=== PATIENT | male | born 1950 | race Caucasian/White ===

== ENCOUNTER 2021-07-30 10:10 | Inpatient (IN) | payer MEDICARE, OTHER ==
[~2021-07-30] VITALS: Ht 177.8 cm; Wt 141.5 kg
[2021-07-30 11:21] LABS: Basophils # (auto) 0.1 10 ^3/uL (0-0.2); Eosinophils # (auto) 0.2 10 ^3/uL (0-0.8); Hemoglobin 17.2 g/dL (13.5-17.5); Monocytes # (auto) 0.9 10 ^3/uL (0-1.3); Nucleated Red Blood Cells % 0.2 %; White Blood Cell 6.6 10^3/uL (4.4-10.8)
[2021-07-30 11:25] LABS: Basophils % (auto) 0.8 % (0.0-2.0); Eosinophils % (auto) 3.4 % (0.0-7.0); Hematocrit 54.6 % (41.0-53.0); Lymphocytes # (auto) 1.2 10 ^3/uL (0.4-5.4); Lymphocytes % (auto) 17.8 % (10.0-50.0); Mean Corpuscular Hemoglobin 29.7 pg (28.0-32.0); Mean Corpuscular Hgb Conc. 31.5 g/dL (32.0-36.0); Mean Corpuscular Volume 94.1 fL (80.0-100.0); Monocytes % (auto) 14.2 % (0.0-12.0); Neutrophils # (auto) 4.2 10 ^3/uL (1.6-8.6); Neutrophils % (auto) 63.8 % (37.0-80.0); Red Cell Distribution Width 18.6 % (11.8-14.3)
[2021-07-30 11:35] LABS: Chloride 106 mmol/L (98-107); Potassium 4.5 mmol/L (3.5-5.1); Sodium 138 mmol/L (136-145)
[2021-07-30 11:44] LABS: Anion Gap 3 (5-15); Blood Urea Nitrogen 24 mg/dL (7-18); Carbon Dioxide 29 mmol/L (21-32); Glucose 98 mg/dL (74-106)
[2021-07-30 11:45] LABS: Alanine Aminotransferase 24 U/L (16-61); Albumin 2.8 g/dL (3.4-5.0); Alkaline Phosphatase 77 U/L (45-117); Aspartate Aminotransferase 23 U/L (15-37); BUN/Creatinine Ratio 21.1; Bilirubin, Total 0.6 mg/dL (0.2-1.0); Calcium 8.6 mg/dL (8.5-10.1); GFR African American 82 mL/min; GFR Non-African American 67 mL/min; Total Protein 7.1 g/dL (6.4-8.2)
[2021-07-30] MEDS ORDERED: FUROSEMIDE 40 MG/4 ML VIAL IV ONE (11:45)
[2021-07-30] MEDS ORDERED: MORPHINE SULFATE INJECTION 2 MG/ML SYRG IV PRN ×2 (13:30)
[2021-07-30] MEDS ORDERED: ONDANSETRON HCL 4 MG/2 ML VIAL IV PRN (13:30)
[2021-07-30] MEDS ORDERED: hydrALAZINE HCL 20 MG/ML VL IV PRN (13:30)
[2021-07-30] MEDS ORDERED: HYDROcodone-ACET 5/325MG TAB PO PRN (13:30)
[2021-07-30] MEDS ORDERED: ALBUTEROL SULF 2.5 MG/0.5ML(0.5%) NEB SOLN NEB PRN (13:30)
[2021-07-30] MEDS ORDERED: LORazepam 0.5 MG TAB PO PRN (13:30)
[2021-07-30] MEDS ORDERED: IPRATROPIUM BROM 0.5 MG/2.5ML INH SOL NEB PRN (13:30)
[2021-07-30] MEDS ORDERED: NITROGLYCERIN 0.4 MG SL TAB SL PRN (13:30)
[2021-07-30] MEDS ORDERED: ACETAMINOPHEN 500 MG TAB PO PRN (13:30)
[2021-07-30] MEDS: CLINDAMYCIN 300MG IV 50 ML IV SCH ×2 (14:39→22:00)
[2021-07-30 15:50] VITALS: BP 131/73
[2021-07-30] MEDS: cefTRIAXone 1GM/50ML D5W 50 ML IV SCH (16:05)
[2021-07-30] MEDS ORDERED: LORazepam 2MG/ML-1ML VIAL ONE (16:57)
[2021-07-30] MEDS: LORazepam 2MG/ML-1ML VIAL IV PRN ×2 (17:01→22:38)
[2021-07-30] MEDS: FUROSEMIDE 20 MG/2 ML VIAL IV SCH (18:00)
[2021-07-30] MEDS: IPRATROPIUM BROM 0.5 MG/2.5ML INH SOL NEB SCH (18:42)
[2021-07-30] MEDS: ALBUTEROL SULF 2.5 MG/0.5ML(0.5%) NEB SOLN NEB SCH (18:42)
[2021-07-30] MEDS: ATORVASTATIN 20 MG TAB PO SCH (22:00)
[2021-07-30] MEDS: METOPROLOL TARTRATE 25 MG TAB PO SCH (22:00)
[2021-07-31] VITALS (8 sets, daily range): BP systolic 64–137; BP diastolic 14–57
[2021-07-31 04:12] LABS: Amphetamine Screen, Urine NEGATIVE (NEGATIVE); Barbiturate Scree,Urine NEGATIVE (NEGATIVE); Benzodiazephine Screen, Urine NEGATIVE (NEGATIVE); Cannabinoid Screen, Urine NEGATIVE (NEGATIVE); Cocaine Screen, Urine NEGATIVE (NEGATIVE); Opiate Scree,Urine NEGATIVE (NEGATIVE); Phencyclidine Screen, Urine NEGATIVE (NEGATIVE)
[2021-07-31 04:28] LABS: Urine Bacteria NONE SEEN /hpf (None Seen); Urine Blood 1+ /uL (Negative); Urine Hyaline Cast FEW /lpf (0 - 2); Urine Mucus FEW (None Seen); Urine Specific Gravity 1.009 (1.001-1.035); Urine WBC 2 /hpf (0 - 3)
[2021-07-31 04:29] LABS: Alcohol, Urine < 3.0 mg/dL (0-10)
[2021-07-31] MEDS: CLINDAMYCIN 300MG IV 50 ML IV SCH ×3 (05:05→22:27)
[2021-07-31] MEDS: FUROSEMIDE 20 MG/2 ML VIAL IV SCH ×2 (05:06→18:23)
[2021-07-31] MEDS: IPRATROPIUM BROM 0.5 MG/2.5ML INH SOL NEB SCH ×3 (05:56→19:44)
[2021-07-31] MEDS: ALBUTEROL SULF 2.5 MG/0.5ML(0.5%) NEB SOLN NEB SCH ×3 (05:56→19:44)
[2021-07-31 06:12] LABS: Basophils # (auto) 0.1 10 ^3/uL (0-0.2); Eosinophils # (auto) 0.2 10 ^3/uL (0-0.8); Monocytes # (auto) 1.2 10 ^3/uL (0-1.3)
[2021-07-31 06:15] LABS: Basophils % (auto) 0.7 % (0.0-2.0); Eosinophils % (auto) 1.4 % (0.0-7.0); Hematocrit 61.2 % (41.0-53.0); Hemoglobin 18.9 g/dL (13.5-17.5); Lymphocytes % (auto) 8.2 % (10.0-50.0); Mean Corpuscular Hemoglobin 30.7 pg (28.0-32.0); Mean Corpuscular Hgb Conc. 30.9 g/dL (32.0-36.0); Mean Corpuscular Volume 99.3 fL (80.0-100.0); Monocytes % (auto) 10.6 % (0.0-12.0); Neutrophils # (auto) 9.2 10 ^3/uL (1.6-8.6); Neutrophils % (auto) 79.1 % (37.0-80.0); Nucleated Red Blood Cells % 0.7 %; Red Blood Cells 6.16 10^6/uL (4.5-5.90); Red Cell Distribution Width 19.5 % (11.8-14.3); White Blood Cell 11.7 10^3/uL (4.4-10.8)
[2021-07-31] MEDS ORDERED: ETOMIDATE (2MG/ML) 20ML VIAL IV ONE ×2 (06:22→06:45)
[2021-07-31] MEDS ORDERED: SUCCINYLCHOLINE CHLORIDE 20 MG/ML 10ML VIAL IV ONE ×2 (06:22→06:45)
[2021-07-31] MEDS ORDERED: FUROSEMIDE 40 MG/4 ML VIAL IV ONE (06:30)
[2021-07-31 06:31] LABS: Anion Gap 6 (5-15); Carbon Dioxide 29 mmol/L (21-32); Chloride 102 mmol/L (98-107); Glucose 174 mg/dL (74-106); Potassium 4.8 mmol/L (3.5-5.1); Sodium 137 mmol/L (136-145)
[2021-07-31 06:33] LABS: BUN/Creatinine Ratio 16.7; Blood Urea Nitrogen 25 mg/dL (7-18); GFR African American 60 mL/min; GFR Non-African American 49 mL/min
[2021-07-31 06:35] LABS: INR 1.37 (0.9-1.15); Partial Thromboplastin Time 37.9 sec (23.6-33.0)
[2021-07-31] MEDS ORDERED: MIDAZOLAM DRIP 50 mg/50mL 50 ML IV ONE (06:36)
[2021-07-31] MEDS ORDERED: fentaNYL Drip 2500mCg/250mlNS 250 ML IV ONE (06:49)
[2021-07-31] MEDS ORDERED: NOREPINEPHRINE 8 MG/250ML KIT 250 ML IV ONE (07:29)
[2021-07-31] MEDS: MIDAZOLAM DRIP 50 mg/50mL 50 ML IV SCH ×2 (07:30→20:51)
[2021-07-31] MEDS: fentaNYL Drip 2500mCg/250mlNS 250 ML IV SCH ×2 (07:30→20:51)
[2021-07-31] MEDS: NOREPINEPHRINE 8 MG/250ML KIT 250 ML IV SCH ×2 (07:40→23:00)
[2021-07-31] MEDS: METOPROLOL TARTRATE 25 MG TAB PO SCH ×2 (10:00→22:00)
[2021-07-31] MEDS: NICOTINE 21MG/24 HR TOPICAL PATCH TD SCH (10:00)
[2021-07-31] MEDS ORDERED: ENOXAPARIN SOD 40 MG/0.4 ML SYRINGE SC SCH (10:00)
[2021-07-31] MEDS: LISINOPRIL 10 MG TAB PO SCH (10:00)
[2021-07-31] MEDS: ASPirin-EC 81 mg tab PO SCH (10:00)
[2021-07-31] MEDS ORDERED: PANTOPRAZOLE 40 MG TAB PO SCH (10:00)
[2021-07-31] MEDS: PANTOPRAZOLE 40 MG/10 ML VIAL INJ IV SCH (11:40)
[2021-07-31] MEDS: cefTRIAXone 1GM/50ML D5W 50 ML IV SCH (11:40)
[2021-07-31] MEDS: ENOXAPARIN SOD 120 MG/0.8 ML SYRINGE SC SCH ×2 (14:00→22:28)
[2021-07-31] MEDS: ACETAMINOPHEN 650 mg PER 20.3 mL UD GT PRN (20:50)
[2021-07-31] MEDS: ATORVASTATIN 20 MG TAB PO SCH (22:27)
[2021-07-31] MEDS ORDERED: PHENYLEPHRINE IV 250 ML IV ONE (23:06)
[2021-07-31] MEDS: PHENYLEPHRINE IV 250 ML IV SCH (23:39)
[2021-08-01] VITALS (8 sets, daily range): BP systolic 86–130; BP diastolic 40–74
[2021-08-01] MEDS: MIDAZOLAM DRIP 50 mg/50mL 50 ML IV SCH ×2 (02:23→21:39)
[2021-08-01] MEDS: NOREPINEPHRINE 8 MG/250ML KIT 250 ML IV SCH ×2 (04:12→23:49)
[2021-08-01] MEDS: ACETAMINOPHEN 650 mg PER 20.3 mL UD GT PRN (05:03)
[2021-08-01] MEDS: FUROSEMIDE 20 MG/2 ML VIAL IV SCH ×2 (05:39→17:48)
[2021-08-01] MEDS: CLINDAMYCIN 300MG IV 50 ML IV SCH ×3 (05:39→22:47)
[2021-08-01] MEDS: PHENYLEPHRINE IV 250 ML IV SCH ×2 (07:35→15:55)
[2021-08-01] MEDS: IPRATROPIUM BROM 0.5 MG/2.5ML INH SOL NEB SCH ×3 (08:07→19:54)
[2021-08-01] MEDS: ALBUTEROL SULF 2.5 MG/0.5ML(0.5%) NEB SOLN NEB SCH ×3 (08:07→19:54)
[2021-08-01] MEDS: PANTOPRAZOLE 40 MG/10 ML VIAL INJ IV SCH (09:38)
[2021-08-01] MEDS: cefTRIAXone 1GM/50ML D5W 50 ML IV SCH (09:38)
[2021-08-01] MEDS: LISINOPRIL 10 MG TAB PO SCH (09:48)
[2021-08-01] MEDS: ENOXAPARIN SOD 120 MG/0.8 ML SYRINGE SC SCH ×2 (09:48→22:47)
[2021-08-01] MEDS: METOPROLOL TARTRATE 25 MG TAB PO SCH ×2 (09:48→22:47)
[2021-08-01] MEDS: ASPirin-EC 81 mg tab PO SCH (09:48)
[2021-08-01] MEDS: NICOTINE 21MG/24 HR TOPICAL PATCH TD SCH (09:49)
[2021-08-01 12:52] LABS: Albumin 2.2 g/dL (3.4-5.0); Calcium 8.5 mg/dL (8.5-10.1)
[2021-08-01 12:53] LABS: Basophils # (auto) 0.1 10 ^3/uL (0-0.2); Basophils % (auto) 1.1 % (0.0-2.0); Eosinophils # (auto) 0.1 10 ^3/uL (0-0.8); Eosinophils % (auto) 0.7 % (0.0-7.0); Hemoglobin 17.9 g/dL (13.5-17.5); Lymphocytes # (auto) 1.6 10 ^3/uL (0.4-5.4); Lymphocytes % (auto) 14.7 % (10.0-50.0); Mean Corpuscular Volume 93.7 fL (80.0-100.0); Monocytes # (auto) 1.4 10 ^3/uL (0-1.3); Monocytes % (auto) 12.8 % (0.0-12.0); Neutrophils # (auto) 7.6 10 ^3/uL (1.6-8.6); Neutrophils % (auto) 70.7 % (37.0-80.0); Nucleated Red Blood Cells % 0.4 %; Red Blood Cells 5.98 10^6/uL (4.5-5.90); Red Cell Distribution Width 18.7 % (11.8-14.3); White Blood Cell 10.8 10^3/uL (4.4-10.8)
[2021-08-01 12:54] LABS: Bilirubin, Total 0.9 mg/dL (0.2-1.0); Total Protein 6.8 g/dL (6.4-8.2)
[2021-08-01] MEDS: ATORVASTATIN 20 MG TAB PO SCH (22:47)
[2021-08-02] VITALS (49 sets, daily range): BP systolic 87–139; BP diastolic 52–89
[2021-08-02] MEDS: PHENYLEPHRINE IV 250 ML IV SCH ×3 (00:15→19:00)
[2021-08-02] MEDS: MIDAZOLAM DRIP 50 mg/50mL 50 ML IV SCH ×5 (01:39→21:57)
[2021-08-02] MEDS: ACETAMINOPHEN 650 mg PER 20.3 mL UD GT PRN (03:15)
[2021-08-02 05:55] LABS: Basophils # (auto) 0 10 ^3/uL (0-0.2); Eosinophils # (auto) 0.1 10 ^3/uL (0-0.8); Lymphocytes # (auto) 1.9 10 ^3/uL (0.4-5.4); Monocytes # (auto) 1.2 10 ^3/uL (0-1.3)
[2021-08-02 05:57] LABS: Basophils % (auto) 0.3 % (0.0-2.0); Hematocrit 53.8 % (41.0-53.0); Hemoglobin 17.3 g/dL (13.5-17.5); Mean Corpuscular Hemoglobin 30.3 pg (28.0-32.0); Mean Corpuscular Volume 94.4 fL (80.0-100.0); Monocytes % (auto) 11.4 % (0.0-12.0); Neutrophils # (auto) 7.4 10 ^3/uL (1.6-8.6); Neutrophils % (auto) 69.3 % (37.0-80.0); Nucleated Red Blood Cells % 0.2 %; Red Cell Distribution Width 18.2 % (11.8-14.3); White Blood Cell 10.7 10^3/uL (4.4-10.8)
[2021-08-02 06:18] LABS: Albumin 2.1 g/dL (3.4-5.0); Calcium 8.7 mg/dL (8.5-10.1); Potassium 3.9 mmol/L (3.5-5.1)
[2021-08-02 06:29] LABS: Bilirubin, Total 1.1 mg/dL (0.2-1.0); Total Protein 6.6 g/dL (6.4-8.2)
[2021-08-02] MEDS: CLINDAMYCIN 300MG IV 50 ML IV SCH ×3 (06:30→21:51)
[2021-08-02] MEDS: FUROSEMIDE 20 MG/2 ML VIAL IV SCH ×3 (06:31→21:52)
[2021-08-02] MEDS: fentaNYL Drip 2500mCg/250mlNS 250 ML IV SCH ×2 (06:45→21:58)
[2021-08-02] MEDS: IPRATROPIUM BROM 0.5 MG/2.5ML INH SOL NEB SCH ×3 (07:14→18:21)
[2021-08-02] MEDS: ALBUTEROL SULF 2.5 MG/0.5ML(0.5%) NEB SOLN NEB SCH ×3 (07:14→18:21)
[2021-08-02] MEDS: cefTRIAXone 1GM/50ML D5W 50 ML IV SCH (09:00)
[2021-08-02] MEDS: ASPirin-EC 81 mg tab PO SCH (09:56)
[2021-08-02] MEDS: METOPROLOL TARTRATE 25 MG TAB PO SCH ×2 (09:56→21:52)
[2021-08-02] MEDS: PANTOPRAZOLE 40 MG/10 ML VIAL INJ IV SCH (09:56)
[2021-08-02] MEDS: LISINOPRIL 10 MG TAB PO SCH (09:56)
[2021-08-02] MEDS: NICOTINE 21MG/24 HR TOPICAL PATCH TD SCH (09:57)
[2021-08-02] MEDS: ENOXAPARIN SOD 120 MG/0.8 ML SYRINGE SC SCH ×2 (09:57→21:52)
[2021-08-02] MEDS: NOREPINEPHRINE 8 MG/250ML KIT 250 ML IV SCH (17:05)
[2021-08-02] MEDS: ATORVASTATIN 20 MG TAB PO SCH (21:53)
[2021-08-03] VITALS (96 sets, daily range): BP systolic 87–119; BP diastolic 57–82
[2021-08-03] MEDS: PHENYLEPHRINE IV 250 ML IV SCH ×3 (01:15→17:55)
[2021-08-03] MEDS: NOREPINEPHRINE 8 MG/250ML KIT 250 ML IV SCH (01:54)
[2021-08-03] MEDS: MIDAZOLAM DRIP 50 mg/50mL 50 ML IV SCH ×6 (01:55→21:41)
[2021-08-03 05:15] LABS: Potassium 4.1 mmol/L (3.5-5.1)
[2021-08-03 05:25] LABS: Albumin 1.9 g/dL (3.4-5.0); BUN/Creatinine Ratio 24.4; Bilirubin, Total 1.2 mg/dL (0.2-1.0); Calcium 8.7 mg/dL (8.5-10.1); Total Protein 6.6 g/dL (6.4-8.2)
[2021-08-03] MEDS: CLINDAMYCIN 300MG IV 50 ML IV SCH ×3 (05:47→21:37)
[2021-08-03] MEDS: ALBUTEROL SULF 2.5 MG/0.5ML(0.5%) NEB SOLN NEB SCH ×3 (06:04→18:17)
[2021-08-03] MEDS: IPRATROPIUM BROM 0.5 MG/2.5ML INH SOL NEB SCH ×3 (06:04→18:17)
[2021-08-03 06:06] LABS: Basophils # (auto) 0.1 10 ^3/uL (0-0.2); Eosinophils # (auto) 0.2 10 ^3/uL (0-0.8); Eosinophils % (auto) 1.8 % (0.0-7.0); Lymphocytes # (auto) 1.4 10 ^3/uL (0.4-5.4); Lymphocytes % (auto) 15.2 % (10.0-50.0); Mean Corpuscular Hemoglobin 29.1 pg (28.0-32.0); Mean Corpuscular Hgb Conc. 30.2 g/dL (32.0-36.0); Mean Corpuscular Volume 96.6 fL (80.0-100.0); Monocytes # (auto) 1.2 10 ^3/uL (0-1.3); Monocytes % (auto) 13.1 % (0.0-12.0); Neutrophils # (auto) 6.5 10 ^3/uL (1.6-8.6); Neutrophils % (auto) 68.9 % (37.0-80.0); Nucleated Red Blood Cells % 0.2 %; Red Blood Cells 5.83 10^6/uL (4.5-5.90); White Blood Cell 9.5 10^3/uL (4.4-10.8)
[2021-08-03 06:09] LABS: Hematocrit 56.3 % (41.0-53.0)
[2021-08-03] MEDS: cefTRIAXone 1GM/50ML D5W 50 ML IV SCH (08:58)
[2021-08-03] MEDS: fentaNYL Drip 2500mCg/250mlNS 250 ML IV SCH (09:32)
[2021-08-03] MEDS: ASPirin-EC 81 mg tab PO SCH (09:40)
[2021-08-03] MEDS: ENOXAPARIN SOD 120 MG/0.8 ML SYRINGE SC SCH ×2 (09:40→21:38)
[2021-08-03] MEDS: PANTOPRAZOLE 40 MG/10 ML VIAL INJ IV SCH (09:40)
[2021-08-03] MEDS: METOPROLOL TARTRATE 25 MG TAB PO SCH ×2 (10:00→21:37)
[2021-08-03] MEDS: NICOTINE 21MG/24 HR TOPICAL PATCH TD SCH (10:00)
[2021-08-03] MEDS: LISINOPRIL 10 MG TAB PO SCH (10:00)
[2021-08-03] MEDS ORDERED: IOHEXOL 350 MG/ML 100ML IJ ONE (10:22)
[2021-08-03] MEDS: FUROSEMIDE 20 MG/2 ML VIAL IV SCH (17:49)
[2021-08-03] MEDS: ATORVASTATIN 20 MG TAB PO SCH (21:37)
[2021-08-04] VITALS (102 sets, daily range): BP systolic 73–136; BP diastolic 42–91
[2021-08-04] MEDS: NOREPINEPHRINE 8 MG/250ML KIT 250 ML IV SCH ×3 (00:30→23:00)
[2021-08-04] MEDS: fentaNYL Drip 2500mCg/250mlNS 250 ML IV SCH (01:16)
[2021-08-04] MEDS: PHENYLEPHRINE IV 250 ML IV SCH ×3 (02:15→19:43)
[2021-08-04] MEDS: MIDAZOLAM DRIP 50 mg/50mL 50 ML IV SCH ×7 (02:53→22:00)
[2021-08-04 04:20] LABS: Lymphocytes # (auto) 1.2 10 ^3/uL (0.4-5.4); Mean Corpuscular Volume 95.5 fL (80.0-100.0)
[2021-08-04 04:23] LABS: Basophils # (auto) 0.2 10 ^3/uL (0-0.2); Basophils % (auto) 1.9 % (0.0-2.0); Eosinophils # (auto) 0.3 10 ^3/uL (0-0.8); Eosinophils % (auto) 3.1 % (0.0-7.0); Hematocrit 53.2 % (41.0-53.0); Hemoglobin 16.3 g/dL (13.5-17.5); Lymphocytes % (auto) 14.7 % (10.0-50.0); Mean Corpuscular Hemoglobin 29.3 pg (28.0-32.0); Mean Corpuscular Hgb Conc. 30.7 g/dL (32.0-36.0); Monocytes # (auto) 0.9 10 ^3/uL (0-1.3); Monocytes % (auto) 11.4 % (0.0-12.0); Neutrophils # (auto) 5.6 10 ^3/uL (1.6-8.6); Neutrophils % (auto) 68.9 % (37.0-80.0); Nucleated Red Blood Cells % 0.4 %; Red Blood Cells 5.57 10^6/uL (4.5-5.90); Red Cell Distribution Width 18.5 % (11.8-14.3); White Blood Cell 8.2 10^3/uL (4.4-10.8)
[2021-08-04 04:42] LABS: Calcium 9.5 mg/dL (8.5-10.1)
[2021-08-04 04:51] LABS: Bilirubin, Total 1.1 mg/dL (0.2-1.0); Total Protein 7.2 g/dL (6.4-8.2)
[2021-08-04 05:14] LABS: Albumin 1.1 g/dL (3.4-5.0)
[2021-08-04] MEDS: CLINDAMYCIN 300MG IV 50 ML IV SCH ×3 (05:17→21:34)
[2021-08-04] MEDS: FUROSEMIDE 20 MG/2 ML VIAL IV SCH ×2 (05:18→17:36)
[2021-08-04] MEDS: IPRATROPIUM BROM 0.5 MG/2.5ML INH SOL NEB SCH ×2 (06:45→18:07)
[2021-08-04] MEDS: ALBUTEROL SULF 2.5 MG/0.5ML(0.5%) NEB SOLN NEB SCH ×2 (06:45→18:07)
[2021-08-04 06:52] LABS: BUN/Creatinine Ratio 23.6
[2021-08-04] MEDS: cefTRIAXone 1GM/50ML D5W 50 ML IV SCH (09:12)
[2021-08-04] MEDS: NICOTINE 21MG/24 HR TOPICAL PATCH TD SCH (10:00)
[2021-08-04] MEDS: ASPirin-EC 81 mg tab PO SCH (10:25)
[2021-08-04] MEDS: ENOXAPARIN SOD 120 MG/0.8 ML SYRINGE SC SCH ×2 (10:25→21:34)
[2021-08-04] MEDS: PANTOPRAZOLE 40 MG/10 ML VIAL INJ IV SCH (10:25)
[2021-08-04] MEDS: ACETAMINOPHEN 650 mg PER 20.3 mL UD GT PRN ×2 (16:01→21:35)
[2021-08-04] MEDS: ATORVASTATIN 20 MG TAB PO SCH (21:34)
[2021-08-05] VITALS (100 sets, daily range): BP systolic 90–152; BP diastolic 55–98
[2021-08-05] MEDS: MIDAZOLAM DRIP 50 mg/50mL 50 ML IV SCH ×7 (01:00→22:30)
[2021-08-05] MEDS: Jevity 1.2 Cal/Fiber 1 Liter GT SCH (02:00)
[2021-08-05] MEDS: fentaNYL Drip 2500mCg/250mlNS 250 ML IV SCH ×3 (02:00→22:30)
[2021-08-05] MEDS: PHENYLEPHRINE IV 250 ML IV SCH ×3 (03:15→19:55)
[2021-08-05 05:11] LABS: Basophils # (auto) 0.1 10 ^3/uL (0-0.2); White Blood Cell 7.3 10^3/uL (4.4-10.8)
[2021-08-05 05:12] LABS: Potassium 4.2 mmol/L (3.5-5.1)
[2021-08-05 05:14] LABS: Basophils % (auto) 1.1 % (0.0-2.0); Eosinophils # (auto) 0.3 10 ^3/uL (0-0.8); Eosinophils % (auto) 3.5 % (0.0-7.0); Hematocrit 51.5 % (41.0-53.0); Lymphocytes # (auto) 1.1 10 ^3/uL (0.4-5.4); Lymphocytes % (auto) 14.5 % (10.0-50.0); Mean Corpuscular Hemoglobin 29.6 pg (28.0-32.0); Mean Corpuscular Hgb Conc. 31.1 g/dL (32.0-36.0); Mean Corpuscular Volume 95.3 fL (80.0-100.0); Monocytes % (auto) 14.2 % (0.0-12.0); Neutrophils # (auto) 4.9 10 ^3/uL (1.6-8.6); Neutrophils % (auto) 66.7 % (37.0-80.0); Nucleated Red Blood Cells % 0.2 %; Red Cell Distribution Width 18.1 % (11.8-14.3)
[2021-08-05 05:20] LABS: BUN/Creatinine Ratio 24.8; Bilirubin, Total 0.9 mg/dL (0.2-1.0)
[2021-08-05 05:29] LABS: Albumin 1.8 g/dL (3.4-5.0)
[2021-08-05] MEDS: FUROSEMIDE 20 MG/2 ML VIAL IV SCH ×2 (05:57→17:18)
[2021-08-05] MEDS: CLINDAMYCIN 300MG IV 50 ML IV SCH ×3 (05:57→21:48)
[2021-08-05] MEDS: ALBUTEROL SULF 2.5 MG/0.5ML(0.5%) NEB SOLN NEB SCH ×3 (07:07→18:15)
[2021-08-05] MEDS: IPRATROPIUM BROM 0.5 MG/2.5ML INH SOL NEB SCH ×3 (07:07→18:15)
[2021-08-05] MEDS: NOREPINEPHRINE 8 MG/250ML KIT 250 ML IV SCH (07:37)
[2021-08-05] MEDS: cefTRIAXone 1GM/50ML D5W 50 ML IV SCH (09:48)
[2021-08-05] MEDS: ENOXAPARIN SOD 120 MG/0.8 ML SYRINGE SC SCH ×2 (09:48→21:48)
[2021-08-05] MEDS: ASPirin-EC 81 mg tab PO SCH (09:48)
[2021-08-05] MEDS: NICOTINE 21MG/24 HR TOPICAL PATCH TD SCH (09:48)
[2021-08-05] MEDS: PANTOPRAZOLE 40 MG/10 ML VIAL INJ IV SCH (09:48)
[2021-08-05] MEDS: ATORVASTATIN 20 MG TAB PO SCH (21:49)
[2021-08-06] VITALS (106 sets, daily range): BP systolic 97–132; BP diastolic 58–83
[2021-08-06] MEDS: Jevity 1.2 Cal/Fiber 1 Liter GT SCH ×2 (02:00→21:00)
[2021-08-06] MEDS: MIDAZOLAM DRIP 50 mg/50mL 50 ML IV SCH ×5 (02:30→21:30)
[2021-08-06] MEDS: PHENYLEPHRINE IV 250 ML IV SCH ×3 (04:11→20:55)
[2021-08-06 04:35] LABS: Basophils # (auto) 0.1 10 ^3/uL (0-0.2); Basophils % (auto) 1.2 % (0.0-2.0); Eosinophils # (auto) 0.3 10 ^3/uL (0-0.8); Eosinophils % (auto) 4.4 % (0.0-7.0); Hematocrit 48.2 % (41.0-53.0); Hemoglobin 15.2 g/dL (13.5-17.5); Lymphocytes # (auto) 1.1 10 ^3/uL (0.4-5.4); Lymphocytes % (auto) 15.9 % (10.0-50.0); Mean Corpuscular Hgb Conc. 31.4 g/dL (32.0-36.0); Mean Corpuscular Volume 95.5 fL (80.0-100.0); Monocytes % (auto) 15.1 % (0.0-12.0); Neutrophils # (auto) 4.4 10 ^3/uL (1.6-8.6); Neutrophils % (auto) 63.4 % (37.0-80.0); Nucleated Red Blood Cells % 0.4 %; Red Blood Cells 5.05 10^6/uL (4.5-5.90); Red Cell Distribution Width 18.1 % (11.8-14.3); White Blood Cell 6.9 10^3/uL (4.4-10.8)
[2021-08-06 04:53] LABS: Potassium 3.8 mmol/L (3.5-5.1)
[2021-08-06 05:00] LABS: Albumin 1.7 g/dL (3.4-5.0); BUN/Creatinine Ratio 24.1; Bilirubin, Total 0.5 mg/dL (0.2-1.0); Calcium 8.8 mg/dL (8.5-10.1); Total Protein 6.7 g/dL (6.4-8.2)
[2021-08-06] MEDS: CLINDAMYCIN 300MG IV 50 ML IV SCH ×3 (05:34→22:03)
[2021-08-06] MEDS: FUROSEMIDE 20 MG/2 ML VIAL IV SCH ×2 (05:36→17:33)
[2021-08-06] MEDS: fentaNYL Drip 2500mCg/250mlNS 250 ML IV SCH ×3 (06:00→23:02)
[2021-08-06] MEDS: ALBUTEROL SULF 2.5 MG/0.5ML(0.5%) NEB SOLN NEB SCH ×3 (07:18→20:04)
[2021-08-06] MEDS: IPRATROPIUM BROM 0.5 MG/2.5ML INH SOL NEB SCH ×3 (07:18→20:04)
[2021-08-06] MEDS: cefTRIAXone 1GM/50ML D5W 50 ML IV SCH (09:25)
[2021-08-06] MEDS: PANTOPRAZOLE 40 MG/10 ML VIAL INJ IV SCH (09:30)
[2021-08-06] MEDS: ENOXAPARIN SOD 120 MG/0.8 ML SYRINGE SC SCH ×2 (09:30→22:03)
[2021-08-06] MEDS: NICOTINE 21MG/24 HR TOPICAL PATCH TD SCH (09:30)
[2021-08-06] MEDS: ASPirin-EC 81 mg tab PO SCH (09:30)
[2021-08-06] MEDS ORDERED: guaiFENesin-DM 100/10mg/5ml SYR PO PRN (16:15)
[2021-08-06] MEDS: NOREPINEPHRINE 8 MG/250ML KIT 250 ML IV SCH ×2 (18:06)
[2021-08-06] MEDS: ATORVASTATIN 20 MG TAB PO SCH (22:03)
[2021-08-07] VITALS (103 sets, daily range): BP systolic 88–142; BP diastolic 50–87
[2021-08-07] MEDS: MIDAZOLAM DRIP 50 mg/50mL 50 ML IV SCH ×5 (01:30→15:12)
[2021-08-07] MEDS: fentaNYL Drip 2500mCg/250mlNS 250 ML IV SCH ×3 (05:00→22:55)
[2021-08-07] MEDS: PHENYLEPHRINE IV 250 ML IV SCH ×3 (05:15→21:55)
[2021-08-07] MEDS: FUROSEMIDE 20 MG/2 ML VIAL IV SCH ×2 (06:28→17:32)
[2021-08-07] MEDS: CLINDAMYCIN 300MG IV 50 ML IV SCH ×3 (06:28→22:09)
[2021-08-07] MEDS: ALBUTEROL SULF 2.5 MG/0.5ML(0.5%) NEB SOLN NEB SCH ×3 (06:50→18:30)
[2021-08-07] MEDS: IPRATROPIUM BROM 0.5 MG/2.5ML INH SOL NEB SCH ×3 (06:50→18:30)
[2021-08-07] MEDS: PANTOPRAZOLE 40 MG/10 ML VIAL INJ IV SCH (09:26)
[2021-08-07] MEDS: cefTRIAXone 1GM/50ML D5W 50 ML IV SCH (09:26)
[2021-08-07] MEDS: ASPirin-EC 81 mg tab PO SCH (09:26)
[2021-08-07] MEDS: ENOXAPARIN SOD 120 MG/0.8 ML SYRINGE SC SCH ×2 (09:27→21:42)
[2021-08-07] MEDS: NICOTINE 21MG/24 HR TOPICAL PATCH TD SCH (09:27)
[2021-08-07] MEDS: NOREPINEPHRINE 8 MG/250ML KIT 250 ML IV SCH (13:35)
[2021-08-07] MEDS: Jevity 1.2 Cal/Fiber 1 Liter GT SCH (19:00)
[2021-08-07] MEDS: ATORVASTATIN 20 MG TAB PO SCH (22:09)
[2021-08-08] VITALS (101 sets, daily range): BP systolic 88–152; BP diastolic 53–94
[2021-08-08] MEDS: ALBUTEROL SULF 2.5 MG/0.5ML(0.5%) NEB SOLN NEB SCH ×4 (00:30→18:20)
[2021-08-08] MEDS: IPRATROPIUM BROM 0.5 MG/2.5ML INH SOL NEB SCH ×4 (00:30→18:20)
[2021-08-08] MEDS: NOREPINEPHRINE 8 MG/250ML KIT 250 ML IV SCH (04:00)
[2021-08-08] MEDS: fentaNYL Drip 2500mCg/250mlNS 250 ML IV SCH ×3 (04:00→20:05)
[2021-08-08] MEDS: MIDAZOLAM DRIP 50 mg/50mL 50 ML IV SCH ×5 (04:00→20:06)
[2021-08-08] MEDS: CLINDAMYCIN 300MG IV 50 ML IV SCH ×3 (06:00→22:00)
[2021-08-08] MEDS: FUROSEMIDE 20 MG/2 ML VIAL IV SCH ×2 (06:00→17:36)
[2021-08-08] MEDS: PHENYLEPHRINE IV 250 ML IV SCH ×3 (06:15→22:55)
[2021-08-08] MEDS: cefTRIAXone 1GM/50ML D5W 50 ML IV SCH (08:30)
[2021-08-08] MEDS: ENOXAPARIN SOD 120 MG/0.8 ML SYRINGE SC SCH ×2 (09:30→22:00)
[2021-08-08] MEDS: PANTOPRAZOLE 40 MG/10 ML VIAL INJ IV SCH (09:30)
[2021-08-08] MEDS: NICOTINE 21MG/24 HR TOPICAL PATCH TD SCH (09:30)
[2021-08-08] MEDS: ASPirin-EC 81 mg tab PO SCH (09:30)
[2021-08-08] MEDS: ATORVASTATIN 20 MG TAB PO SCH (22:00)
[2021-08-09] VITALS (108 sets, daily range): BP systolic 91–146; BP diastolic 54–94
[2021-08-09] MEDS: MIDAZOLAM DRIP 50 mg/50mL 50 ML IV SCH ×6 (03:30→22:34)
[2021-08-09] MEDS: fentaNYL Drip 2500mCg/250mlNS 250 ML IV SCH ×3 (04:00→21:00)
[2021-08-09] MEDS: NOREPINEPHRINE 8 MG/250ML KIT 250 ML IV SCH (04:00)
[2021-08-09 04:26] LABS: Basophils # (auto) 0.1 10 ^3/uL (0-0.2); Basophils % (auto) 0.8 % (0.0-2.0); Eosinophils # (auto) 0.3 10 ^3/uL (0-0.8); Eosinophils % (auto) 3.9 % (0.0-7.0); Hematocrit 47.9 % (41.0-53.0); Hemoglobin 14.9 g/dL (13.5-17.5); Lymphocytes # (auto) 1.4 10 ^3/uL (0.4-5.4); Lymphocytes % (auto) 19.1 % (10.0-50.0); Mean Corpuscular Hemoglobin 29.5 pg (28.0-32.0); Mean Corpuscular Hgb Conc. 31.1 g/dL (32.0-36.0); Mean Corpuscular Volume 95.1 fL (80.0-100.0); Monocytes # (auto) 0.9 10 ^3/uL (0-1.3); Monocytes % (auto) 12.4 % (0.0-12.0); Neutrophils # (auto) 4.6 10 ^3/uL (1.6-8.6); Neutrophils % (auto) 63.8 % (37.0-80.0); Nucleated Red Blood Cells % 0.2 %; Red Blood Cells 5.03 10^6/uL (4.5-5.90); White Blood Cell 7.2 10^3/uL (4.4-10.8)
[2021-08-09 04:45] LABS: INR 1.27 (0.9-1.15); Partial Thromboplastin Time 39.1 sec (23.6-33.0)
[2021-08-09 04:47] LABS: Albumin 1.6 g/dL (3.4-5.0); Calcium 9.1 mg/dL (8.5-10.1); Potassium 4.1 mmol/L (3.5-5.1)
[2021-08-09 04:52] LABS: Bilirubin, Total 0.3 mg/dL (0.2-1.0); Total Protein 6.7 g/dL (6.4-8.2)
[2021-08-09] MEDS: ALBUTEROL SULF 2.5 MG/0.5ML(0.5%) NEB SOLN NEB SCH ×3 (06:04→18:15)
[2021-08-09] MEDS: IPRATROPIUM BROM 0.5 MG/2.5ML INH SOL NEB SCH ×3 (06:04→18:15)
[2021-08-09] MEDS: CLINDAMYCIN 300MG IV 50 ML IV SCH ×3 (06:13→22:26)
[2021-08-09] MEDS: FUROSEMIDE 20 MG/2 ML VIAL IV SCH ×2 (06:13→18:24)
[2021-08-09] MEDS: PHENYLEPHRINE IV 250 ML IV SCH ×3 (07:15→23:55)
[2021-08-09] MEDS: cefTRIAXone 1GM/50ML D5W 50 ML IV SCH (09:09)
[2021-08-09] MEDS: PANTOPRAZOLE 40 MG/10 ML VIAL INJ IV SCH (09:09)
[2021-08-09] MEDS: NICOTINE 21MG/24 HR TOPICAL PATCH TD SCH (09:10)
[2021-08-09] MEDS: ENOXAPARIN SOD 120 MG/0.8 ML SYRINGE SC SCH ×2 (09:10→22:26)
[2021-08-09] MEDS: ASPirin-EC 81 mg tab PO SCH (09:10)
[2021-08-09] MEDS ORDERED: PROPOFOL 100 ML IV ONE (11:51)
[2021-08-09] MEDS: PROPOFOL 100 ML IV SCH (12:05)
[2021-08-09] MEDS: Jevity 1.2 Cal/Fiber 1 Liter GT SCH (20:00)
[2021-08-09] MEDS: ATORVASTATIN 20 MG TAB PO SCH (22:26)
[2021-08-09] MEDS: ACETAMINOPHEN 650 mg PER 20.3 mL UD GT PRN (23:38)
[2021-08-10] VITALS (106 sets, daily range): BP systolic 91–152; BP diastolic 55–89
[2021-08-10] MEDS: PROPOFOL 100 ML IV SCH ×4 (01:00→23:00)
[2021-08-10] MEDS: MIDAZOLAM DRIP 50 mg/50mL 50 ML IV SCH ×6 (01:40→22:30)
[2021-08-10] MEDS: NOREPINEPHRINE 8 MG/250ML KIT 250 ML IV SCH (04:00)
[2021-08-10] MEDS: ALBUTEROL SULF 2.5 MG/0.5ML(0.5%) NEB SOLN NEB SCH ×2 (05:50→12:24)
[2021-08-10] MEDS: FUROSEMIDE 20 MG/2 ML VIAL IV SCH ×2 (06:21→17:50)
[2021-08-10] MEDS: CLINDAMYCIN 300MG IV 50 ML IV SCH ×3 (06:21→22:00)
[2021-08-10] MEDS: PHENYLEPHRINE IV 250 ML IV SCH ×2 (08:15→16:35)
[2021-08-10] MEDS: cefTRIAXone 1GM/50ML D5W 50 ML IV SCH (09:15)
[2021-08-10 09:31] LABS: Basophils # (auto) 0.2 10 ^3/uL (0-0.2); Basophils % (auto) 1.3 % (0.0-2.0); Eosinophils # (auto) 0.5 10 ^3/uL (0-0.8); Eosinophils % (auto) 2.8 % (0.0-7.0); Hematocrit 46.3 % (41.0-53.0); Hemoglobin 14.3 g/dL (13.5-17.5); Lymphocytes # (auto) 2.5 10 ^3/uL (0.4-5.4); Lymphocytes % (auto) 14.7 % (10.0-50.0); Mean Corpuscular Hemoglobin 29.1 pg (28.0-32.0); Monocytes # (auto) 2.3 10 ^3/uL (0-1.3); Monocytes % (auto) 13.8 % (0.0-12.0); Neutrophils # (auto) 11.5 10 ^3/uL (1.6-8.6); Neutrophils % (auto) 67.4 % (37.0-80.0); Nucleated Red Blood Cells % 0.3 %; Red Blood Cells 4.93 10^6/uL (4.5-5.90); Red Cell Distribution Width 17.6 % (11.8-14.3)
[2021-08-10 09:35] LABS: Albumin 1.5 g/dL (3.4-5.0); Calcium 8.7 mg/dL (8.5-10.1); Potassium 4.7 mmol/L (3.5-5.1)
[2021-08-10 09:38] LABS: BUN/Creatinine Ratio 26.2; Bilirubin, Total 0.7 mg/dL (0.2-1.0); Total Protein 6.6 g/dL (6.4-8.2)
[2021-08-10] MEDS: ASPirin-EC 81 mg tab PO SCH (10:00)
[2021-08-10] MEDS: ENOXAPARIN SOD 120 MG/0.8 ML SYRINGE SC SCH ×2 (10:10→22:00)
[2021-08-10] MEDS: PANTOPRAZOLE 40 MG/10 ML VIAL INJ IV SCH (10:10)
[2021-08-10] MEDS: FLUCONAZOLE 200MG/100ML 100 ML IV SCH ×2 (10:10→11:37)
[2021-08-10] MEDS: NICOTINE 21MG/24 HR TOPICAL PATCH TD SCH (10:11)
[2021-08-10] MEDS: IPRATROPIUM BROM 0.5 MG/2.5ML INH SOL NEB SCH ×2 (12:23→18:15)
[2021-08-10] MEDS: fentaNYL Drip 2500mCg/250mlNS 250 ML IV SCH ×2 (12:54→21:00)
[2021-08-10] MEDS: ATORVASTATIN 20 MG TAB PO SCH (22:00)
[2021-08-11] VITALS (85 sets, daily range): BP systolic 84–112; BP diastolic 46–73
[2021-08-11] MEDS: PHENYLEPHRINE IV 250 ML IV SCH ×3 (00:55→17:35)
[2021-08-11] MEDS: MIDAZOLAM DRIP 50 mg/50mL 50 ML IV SCH ×4 (02:00→13:50)
[2021-08-11 05:03] LABS: Basophils # (auto) 0.1 10 ^3/uL (0-0.2); Basophils % (auto) 1.2 % (0.0-2.0); Eosinophils # (auto) 0.2 10 ^3/uL (0-0.8); Eosinophils % (auto) 2.6 % (0.0-7.0); Hemoglobin 14.5 g/dL (13.5-17.5); Lymphocytes # (auto) 1.3 10 ^3/uL (0.4-5.4); Lymphocytes % (auto) 17.9 % (10.0-50.0); Mean Corpuscular Hemoglobin 29.6 pg (28.0-32.0); Mean Corpuscular Hgb Conc. 31.4 g/dL (32.0-36.0); Mean Corpuscular Volume 94.3 fL (80.0-100.0); Monocytes # (auto) 0.9 10 ^3/uL (0-1.3); Monocytes % (auto) 12.4 % (0.0-12.0); Neutrophils # (auto) 4.6 10 ^3/uL (1.6-8.6); Neutrophils % (auto) 65.9 % (37.0-80.0); Nucleated Red Blood Cells % 0.2 %; Red Blood Cells 4.88 10^6/uL (4.5-5.90); Red Cell Distribution Width 17.5 % (11.8-14.3)
[2021-08-11 05:58] LABS: Potassium 4.2 mmol/L (3.5-5.1)
[2021-08-11] MEDS: FUROSEMIDE 20 MG/2 ML VIAL IV SCH ×2 (06:00→18:47)
[2021-08-11] MEDS: PROPOFOL 100 ML IV SCH ×3 (06:00→15:25)
[2021-08-11] MEDS: CLINDAMYCIN 300MG IV 50 ML IV SCH ×3 (06:00→21:03)
[2021-08-11 06:09] LABS: BUN/Creatinine Ratio 29.5; Bilirubin, Total 0.6 mg/dL (0.2-1.0); Calcium 9.2 mg/dL (8.5-10.1); Total Protein 6.8 g/dL (6.4-8.2)
[2021-08-11 06:15] LABS: Albumin 1.6 g/dL (3.4-5.0)
[2021-08-11] MEDS: ALBUTEROL SULF 2.5 MG/0.5ML(0.5%) NEB SOLN NEB SCH ×4 (06:23→12:00)
[2021-08-11] MEDS: IPRATROPIUM BROM 0.5 MG/2.5ML INH SOL NEB SCH ×3 (06:23→12:47)
[2021-08-11] MEDS: NOREPINEPHRINE 8 MG/250ML KIT 250 ML IV SCH (07:30)
[2021-08-11] MEDS: cefTRIAXone 1GM/50ML D5W 50 ML IV SCH (08:57)
[2021-08-11] MEDS: PANTOPRAZOLE 40 MG/10 ML VIAL INJ IV SCH (09:47)
[2021-08-11] MEDS: FLUCONAZOLE 200MG/100ML 100 ML IV SCH ×2 (09:48→11:11)
[2021-08-11] MEDS: NICOTINE 21MG/24 HR TOPICAL PATCH TD SCH (09:48)
[2021-08-11] MEDS: ENOXAPARIN SOD 120 MG/0.8 ML SYRINGE SC SCH (09:48)
[2021-08-11] MEDS: ASPirin-EC 81 mg tab PO SCH (09:48)
[2021-08-11] MEDS: fentaNYL Drip 2500mCg/250mlNS 250 ML IV SCH (11:13)
[2021-08-11] MEDS: ATORVASTATIN 20 MG TAB PO SCH (21:03)
[2021-08-12] VITALS (102 sets, daily range): BP systolic 93–127; BP diastolic 48–73
[2021-08-12] MEDS: PHENYLEPHRINE IV 250 ML IV SCH ×3 (01:34→18:35)
[2021-08-12 02:16] LABS: Basophils # (auto) 0.1 10 ^3/uL (0-0.2); Basophils % (auto) 1.6 % (0.0-2.0); Eosinophils # (auto) 0.3 10 ^3/uL (0-0.8); Eosinophils % (auto) 3.7 % (0.0-7.0); Hematocrit 44.6 % (41.0-53.0); Hemoglobin 14.3 g/dL (13.5-17.5); Lymphocytes % (auto) 13.8 % (10.0-50.0); Mean Corpuscular Hemoglobin 30.2 pg (28.0-32.0); Mean Corpuscular Hgb Conc. 32.1 g/dL (32.0-36.0); Monocytes # (auto) 0.9 10 ^3/uL (0-1.3); Monocytes % (auto) 12.4 % (0.0-12.0); Neutrophils # (auto) 4.9 10 ^3/uL (1.6-8.6); Neutrophils % (auto) 68.5 % (37.0-80.0); Nucleated Red Blood Cells % 0.5 %; Red Blood Cells 4.75 10^6/uL (4.5-5.90); Red Cell Distribution Width 17.7 % (11.8-14.3); White Blood Cell 7.1 10^3/uL (4.4-10.8)
[2021-08-12 02:31] LABS: Potassium 3.8 mmol/L (3.5-5.1)
[2021-08-12 02:34] LABS: Albumin 1.6 g/dL (3.4-5.0); BUN/Creatinine Ratio 29.6
[2021-08-12 02:37] LABS: Bilirubin, Total 0.8 mg/dL (0.2-1.0); Total Protein 6.8 g/dL (6.4-8.2)
[2021-08-12] MEDS: CLINDAMYCIN 300MG IV 50 ML IV SCH ×3 (05:34→21:28)
[2021-08-12] MEDS: FUROSEMIDE 20 MG/2 ML VIAL IV SCH ×2 (05:34→17:50)
[2021-08-12] MEDS: ALBUTEROL SULF 2.5 MG/0.5ML(0.5%) NEB SOLN NEB SCH ×3 (07:18→18:43)
[2021-08-12] MEDS: IPRATROPIUM BROM 0.5 MG/2.5ML INH SOL NEB SCH ×3 (07:18→18:43)
[2021-08-12] MEDS: NOREPINEPHRINE 8 MG/250ML KIT 250 ML IV SCH (07:30)
[2021-08-12] MEDS: cefTRIAXone 1GM/50ML D5W 50 ML IV SCH (08:40)
[2021-08-12 09:15] LABS: Basophils # (auto) 0 10 ^3/uL (0-0.2); Basophils % (auto) 0.3 % (0.0-2.0); Eosinophils # (auto) 0.2 10 ^3/uL (0-0.8); Eosinophils % (auto) 3.5 % (0.0-7.0); Hemoglobin 14.5 g/dL (13.5-17.5); Lymphocytes # (auto) 0.8 10 ^3/uL (0.4-5.4); Lymphocytes % (auto) 12.2 % (10.0-50.0); Mean Corpuscular Hemoglobin 30.5 pg (28.0-32.0); Mean Corpuscular Hgb Conc. 32.2 g/dL (32.0-36.0); Mean Corpuscular Volume 94.5 fL (80.0-100.0); Monocytes # (auto) 0.8 10 ^3/uL (0-1.3); Monocytes % (auto) 11.2 % (0.0-12.0); Neutrophils % (auto) 72.8 % (37.0-80.0); Nucleated Red Blood Cells % 0.2 %; Red Blood Cells 4.76 10^6/uL (4.5-5.90); Red Cell Distribution Width 17.9 % (11.8-14.3); White Blood Cell 6.9 10^3/uL (4.4-10.8)
[2021-08-12 09:34] LABS: Calcium 9.2 mg/dL (8.5-10.1); Potassium 4.3 mmol/L (3.5-5.1)
[2021-08-12 09:39] LABS: BUN/Creatinine Ratio 30.4; Bilirubin, Total 0.7 mg/dL (0.2-1.0); Total Protein 6.9 g/dL (6.4-8.2)
[2021-08-12] MEDS: MIDAZOLAM DRIP 50 mg/50mL 50 ML IV SCH ×3 (09:40→17:30)
[2021-08-12] MEDS ORDERED: ENOXAPARIN SOD 120 MG/0.8 ML SYRINGE SC SCH (10:00)
[2021-08-12] MEDS: FLUCONAZOLE 200MG/100ML 100 ML IV SCH ×2 (10:31→11:40)
[2021-08-12] MEDS: PANTOPRAZOLE 40 MG/10 ML VIAL INJ IV SCH (10:32)
[2021-08-12] MEDS: ASPirin-EC 81 mg tab PO SCH (10:32)
[2021-08-12] MEDS: PROPOFOL 100 ML IV SCH ×2 (10:34→15:00)
[2021-08-12] MEDS: NICOTINE 21MG/24 HR TOPICAL PATCH TD SCH (10:34)
[2021-08-12 10:53] LABS: Albumin 1.5 g/dL (3.4-5.0)
[2021-08-12] MEDS: fentaNYL Drip 2500mCg/250mlNS 250 ML IV SCH (12:15)
[2021-08-12] MEDS: ATORVASTATIN 20 MG TAB PO SCH (21:29)
[2021-08-13] VITALS (33 sets, daily range): BP systolic 93–123; BP diastolic 54–73
[2021-08-13 02:19] LABS: Basophils # (auto) 0.2 10 ^3/uL (0-0.2); Basophils % (auto) 1.9 % (0.0-2.0); Eosinophils # (auto) 0.2 10 ^3/uL (0-0.8); Eosinophils % (auto) 3.1 % (0.0-7.0); Hematocrit 43.9 % (41.0-53.0); Hemoglobin 14.1 g/dL (13.5-17.5); Lymphocytes # (auto) 0.9 10 ^3/uL (0.4-5.4); Lymphocytes % (auto) 11.1 % (10.0-50.0); Mean Corpuscular Hemoglobin 30.1 pg (28.0-32.0); Mean Corpuscular Hgb Conc. 32.1 g/dL (32.0-36.0); Mean Corpuscular Volume 93.8 fL (80.0-100.0); Monocytes # (auto) 0.9 10 ^3/uL (0-1.3); Monocytes % (auto) 11.3 % (0.0-12.0); Neutrophils # (auto) 5.7 10 ^3/uL (1.6-8.6); Neutrophils % (auto) 72.6 % (37.0-80.0); Nucleated Red Blood Cells % 0.3 %; Red Blood Cells 4.67 10^6/uL (4.5-5.90); Red Cell Distribution Width 17.5 % (11.8-14.3); White Blood Cell 7.9 10^3/uL (4.4-10.8)
[2021-08-13 02:38] LABS: Albumin 1.6 g/dL (3.4-5.0); BUN/Creatinine Ratio 26.7; Calcium 8.9 mg/dL (8.5-10.1)
[2021-08-13 02:49] LABS: Bilirubin, Total 0.8 mg/dL (0.2-1.0); Total Protein 7.2 g/dL (6.4-8.2)
[2021-08-13] MEDS: PHENYLEPHRINE IV 250 ML IV SCH (02:55)
[2021-08-13] MEDS: CLINDAMYCIN 300MG IV 50 ML IV SCH (05:16)
[2021-08-13] MEDS: FUROSEMIDE 20 MG/2 ML VIAL IV SCH (05:17)
[2021-08-13] MEDS: IPRATROPIUM BROM 0.5 MG/2.5ML INH SOL NEB SCH (06:10)
[2021-08-13] MEDS: ALBUTEROL SULF 2.5 MG/0.5ML(0.5%) NEB SOLN NEB SCH (06:10)
[2021-08-13] MEDS: cefTRIAXone 1GM/50ML D5W 50 ML IV SCH (09:00)
[2021-08-13] MEDS ORDERED: LORazepam 2MG/ML-1ML VIAL IV PRN (12:45)
[2021-08-13] MEDS ORDERED: MORPHINE SULFATE INJECTION 2 MG/ML SYRG IV PRN (12:45)
== END 2021-08-13 14:17 | DRG 870 ==
LOC: ER 10:10 → TELE 13:25 → ICU WEST 08-02 10:47
PROVIDERS: ADMIT Nurse Practitioner Acute Care; ATTEND Internal Medicine
PROC: 5A1955Z Respiratory Ventilation, Greater than 96 Consecutive Hours (ICD-10-PCS; principal; 2021-07-31)
PROC: 0BH17EZ Insertion of Endotracheal Airway into Trachea, Via Natural or Artificial Opening (ICD-10-PCS; 2021-07-31)
PROC: 06HM33Z Insertion of Infusion Device into Right Femoral Vein, Percutaneous Approach (ICD-10-PCS; 2021-07-31)
DX: A41.9 Sepsis, unspecified organism (principal); J18.9 Pneumonia, unspecified organism; J96.01 Acute respiratory failure with hypoxia; L03.115 Cellulitis of right lower limb; L03.116 Cellulitis of left lower limb; N17.9 Acute kidney failure, unspecified; J44.0 Chronic obstructive pulmonary disease with (acute) lower respiratory infection; J44.1 Chronic obstructive pulmonary disease with (acute) exacerbation; I13.0 Hypertensive heart and chronic kidney disease with heart failure and stage 1 through stage 4 chronic kidney disease, or unspecified chronic kidney disease; E78.00 Pure hypercholesterolemia, unspecified; I50.9 Heart failure, unspecified; Z20.822 Contact with and (suspected) exposure to COVID-19; E66.9 Obesity, unspecified; D69.6 Thrombocytopenia, unspecified; N18.30 Chronic kidney disease, stage 3 unspecified; D75.1 Secondary polycythemia; F12.10 Cannabis abuse, uncomplicated; Z68.38 Body mass index [BMI] 38.0-38.9, adult; F17.210 Nicotine dependence, cigarettes, uncomplicated; Z66 Do not resuscitate
CPT/HCPCS: 31500; 36415; 36600; 71045; 80048; 80053; 80307; 81001; 82550; 82805; 82962; 83605; 83880; 84484; 85025; 85379; 85610; 85652; 85730; 86141; 87040; 87070; 87077; 87081; 87086; 87205; 87426; 93005; 93306; 93970; 94002; 94003; 94640; 96374; 96375; 99291; C9113; G0378; J0330; J0696; J1450; J2250; J2704; J3490